=== PATIENT | female | born 1975 | race Caucasian/White ===

== ENCOUNTER 2020-04-27 15:25 | Emergency (ER) | payer OTHER ==
[~2020-04-27] VITALS: Ht 170.2 cm; Wt 104.3 kg
[2020-04-27] MEDS ORDERED: SYNTHROID137 MCG PO (15:43)
[2020-04-27] MEDS ORDERED: ESCITALOPRAM OX10 MG PO (15:44)
--- OUTSIDE RECORDS SUMMARY | 2020-04-27 16:28 | XMS ---
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 Laure VISIT COUNT (12 MO.) 1 [facility] 1 [facility] TOTAL 2 NOTE: Visits indicate total known visits. ED/UCC VISIT TRACKING (12 MO.) 04/27/2020 15:26 [facility] TYPE: Emergency COMPLAINT: - ANKLE PAIN, INJ 09/27/2019 22:29 [facility] TYPE: Emergency DIAGNOSES: - . - Supraventricular tachycardia INPATIENT VISIT TRACKING (12 MO.) No inpatient visits to display in this time frame [id number]
[2020-04-27] MEDS ORDERED: NORCO 5-325 TA1 EACH PO (16:47)
== END 2020-04-27 17:08 | disposition home or self-care (01) ==
LOC: ED 15:25
DX: S93.401A Sprain of unspecified ligament of right ankle, initial encounter (principal); F41.9 Anxiety disorder, unspecified; Z79.899 Other long term (current) drug therapy; X58.XXXA Exposure to other specified factors, initial encounter
CPT/HCPCS: 73610; 99283-25